=== PATIENT | female | born 1975 | race Caucasian/White ===

== ENCOUNTER 2017-09-10 01:07 | Emergency (ER) | payer OTHER ==
[2017-09-10 01:43] VITALS: BP 122/82
--- NOTE | 2017-09-10 02:03 | ED UPPER/LOWER EXTREMITY COMPL ---
History of Present Illness General Chief Complaint: Lower Extremity Problems Stated Complaint: LT LEG PAIN ? DVT PER PT Source: patient, old records Exam Limitations: no limitations Vital Signs & Intake/Output Vital Signs & Intake/Output Vital Signs Date Time Temp Pulse Resp B/P B/P Pulse O2 O2 Flow FiO2 Mean Ox Delivery Rate 09/10 0143 98.6 97 18 122/82 97 Room Air Allergies Coded Allergies: adhesive (Mild, SKIN IRRITATION 09/10/17) codeine (UNKNOWN 09/10/17) ozzy (UNKNOWN 09/10/17) Reconcile Medications Baclofen 10 MG TABLET 1 TAB PO TIDPRN PRN muscle spasm/strain Ibuprofen 600 MG TABLET 1 TAB PO Q6P PRN pain with food Triage Note: TRIAGE: PATIENT TO ER FROM HOME REPORTING "FEW MONTHS AGO NOTICED PAINFUL TO TOUCH MY L UPPER THIGH (LATERAL), TONIGHT L UPPER THIGH PAIN IS WORSE WHEN I TOUCH IT AND IT'S A LITTLE WARM TO TOUCH." DENIES ANY DISCOLORATION, NO SWELLING. Triage Nurses Notes Reviewed? yes Onset: Several months Duration: week(s):, constant, continues in ED Timing: recent history Severity: mild, moderate Pain/Injury Location: Left: Leg. Method of Injury: unknown Modifying Factors: Worsens With: other (palpation). Associated Symptoms: swelling, stiffness LMP (ages 10-50): unknown : No Patient currently breastfeeds: No HPI: Several months prior to admission patient noted lump to the lateral aspect of left thigh. Since this time it has become progressively uncomfortable. He is in the area of varicose veins. She denies fever chills nausea vomiting diarrhea abdominal pain chest pain shortness breath headache dysuria rash bleeding trauma. She is concerned it may be a blood clot. Past History Travel History Traveled to [place] past 21 day No Medical History Any Pertinent Medical History? none Neurological: NONE EENT: NONE Cardiovascular: NONE Respiratory: NONE Gastrointestinal: NONE Hepatic: NONE Renal: NONE Musculoskeletal: NONE Psychiatric: NONE Endocrine: NONE Blood Disorders: NONE Cancer(s): NONE INCIDENT RESPONSE ENGINEER/Reproductive: NONE Surgical History Surgical History: non-contributory Psychosocial History What is your primary language Ug[place]an Tobacco Use: Quit >30 days ago Family History Hx Contributory? No Review of Systems Review of Systems Constitutional: Reports: no symptoms. EENTM: Reports: no symptoms. Respiratory: Reports: no symptoms. Cardiovascular: Reports: no symptoms. Gastrointestinal/Abdominal: Reports: no symptoms. Genitourinary: Reports: no symptoms. Musculoskeletal: Reports: see HPI. Skin: Reports: see HPI. Neurological/Psychological: Reports: no symptoms. Hematologic/Endocrine: Reports: no symptoms. Immunological: Reports: no symptoms. All Other Systems: Reviewed and Negative Physical Exam Physical Exam General Appearance: well developed/nourished, alert, awake, anxious, mild distress Head: atraumatic, normal appearance Eyes: Bilateral: normal appearance, PERRL, EOMI. Ears, Nose, Throat: normal pharynx, normal ENT inspection, hearing grossly normal Neck: normal inspection, supple, full range of motion Cardiovascular/Respiratory: normal breath sounds, normal peripheral pulses, regular rate/rhythm, no respiratory distress Peripheral Pulses: 4+ carotid (R), 4+ carotid (L), 3+ femoral (R), 3+ femoral (L) Back: normal inspection, normal range of motion Shoulder Left: normal range of motion, normal inspection Shoulder Right: normal range of motion, normal inspection Elbow Left: normal range of motion, normal inspection Elbow Right: normal range of motion, normal inspection Hand Left: normal inspection, normal range of motion Hand Right: normal inspection, normal range of motion Upper Extremity Reflexes: 2+: bicep (R), bicep (L). Leg Left: normal range of motion, tenderness (left lateral femur), soft tissue tenderness Leg Right: normal range of motion, normal inspection Hip Left: normal range of motion, normal inspection Hip Right: normal range of motion, normal inspection Knee Left: normal range of motion, normal inspection Knee Right: normal range of motion, normal inspection Foot Left: normal inspection, normal range of motion Foot Right: normal inspection, normal range of motion Lower Extremity Reflexes: 2+: knee (R), knee (L). Neurologic/Tendon: normal sensation, normal motor functions, normal tendon functions Skin: intact, normal color, warm/dry, tender varicosity left lateral femur Lymphatic: no anterior cervical miriam Progress Differential Diagnosis: cellulitis, contusion, sprain Plan of Care: Current Medications Sig/Domonique Start time Last Medication Dose Stop Time Status Admin Cyclobenzaprine HCl 10 MG ONCE ONE 09/10 214 UNVr (Flexeril 10MG Tab) 09/11 215 Ibuprofen 600 MG ONCE ONE 09/10 214 UNVr (Motrin) 09/11 215 Departure Departure Time of Disposition: 201 Disposition: HOME OR SELF CARE Condition: Stable Clinical Impression Primary Impression: Pain of left lateral upper thigh Secondary Impressions: Varicose vein of leg Referrals: Rj Streeter MD Call for vascular surgery follow up Chaparro Mckeon MD (PCP/Family) Departure Forms: Customer Survey General Discharge Information Prescriptions: Current Visit Scripts Ibuprofen 1 TAB PO Q6P PRN pain #50 TAB with food Baclofen 1 TAB PO TIDPRN PRN muscle spasm/strain #30 TAB
[2017-09-10] MEDS ORDERED: BACLOFEN10 M1 PO (02:04)
[2017-09-10] MEDS ORDERED: IBUPROFEN600 M1 PO (02:04)
== END 2017-09-10 02:16 ==
LOC: ERH 01:07
DX: I83.90 Asymptomatic varicose veins of unspecified lower extremity (principal)